=== PATIENT | male | born 1935 | race Caucasian/White ===

== ENCOUNTER 2018-01-05 11:35 | Outpatient (CLI) | payer MEDICARE, BC ==
--- NOTE | 2018-01-05 12:37 | RAD ---
SUPINE ABDOMEN: INDICATIONS: Renal calculi. COMPARISON: 10/28/2016 FINDINGS: A large amount of bowel gas and stool obscure both kidneys and urinary tracts. No definite urinary t ract calculus identified, although renal calculi could be obscured. IMPRESSION: 1. Nonspecific, diffuse small and large bowel gaseous distention. 2. No definite calculus identified, although small calculi could easily be obscured on this examinat ion. POS: RIO
--- NOTE | 2018-01-05 12:41 | ULT ---
RENAL ULTRASOUND: HISTORY: Renal cyst. COMPARISON: Correlation is made to a renal ultrasound exam dated 10/28/16. FINDINGS: The large exophytic cyst from the upper lateral right kidney is again noted measuring 11-12 cm. This appears unchanged from prior exam. The right renal cortex shows mild thinning but preserves echogen icity. No hydronephrosis. The left kidney is unremarkable. The urinary bladder is mildly distended and appears unremarkable as visualized. IMPRESSION: The large exophytic right renal cyst appears unchanged. POS: RIO
== END 2018-01-05 11:36 | disposition home or self-care (01) ==
LOC: ULT 11:35
PROVIDERS: ATTEND Urology
DX: N20.0 Calculus of kidney (principal); N40.0 Benign prostatic hyperplasia without lower urinary tract symptoms; N28.1 Cyst of kidney, acquired; K63.89 Other specified diseases of intestine
CPT/HCPCS: 36415; 74018; 76770; 80048; 81001; 87086

== ENCOUNTER 2023-02-25 11:49 | Outpatient (CLI) | payer MEDICARE, BC | END 2023-02-25 11:50 | disposition home or self-care (01) | LOC: RAD 11:49 | PROVIDERS: ATTEND Urology | DX: N20.0 Calculus of kidney (principal) | CPT/HCPCS: 74018 ==

== ENCOUNTER 2025-06-07 07:29 | Day surgery (SDC) | payer MEDICARE, BC ==
[2025-06-06 09:41] VITALS: BMI 27.6
[2025-06-07] MEDS ORDERED: Rocuronium Bromide 10 MG/ML (10ML VIAL) ONE ×2 (08:47→09:54)
[2025-06-07] MEDS ORDERED: PROPOFOL 20 ML ONE (08:47)
[2025-06-07] MEDS ORDERED: PROPOFOL 200 MG/20 ML VIAL ONE (09:54)
[2025-06-07] MEDS ORDERED: PHENYLEPHRINE-NS 100 MCG/ML 10 ML SYRINGE ONE ×2 (09:54→10:16)
[2025-06-07] MEDS ORDERED: SUGAMMADEX SODIUM 200 MG/2 ML VIAL ONE (10:01)
[2025-06-07] MEDS ORDERED: Ondansetron PF 4 MG/2 ML Vial ONE (10:01)
== END 2025-06-07 16:30 | disposition home or self-care (01) ==
LOC: SDC 07:29
PROVIDERS: ATTEND Urology
PROC: 0T778DZ Dilation of Left Ureter with Intraluminal Device, Via Natural or Artificial Opening Endoscopic (ICD-10-PCS; principal; 2025-06-07)
DX: N20.1 Calculus of ureter (principal); N40.1 Benign prostatic hyperplasia with lower urinary tract symptoms; E11.9 Type 2 diabetes mellitus without complications; Z98.890 Other specified postprocedural states; Z95.818 Presence of other cardiac implants and grafts; Z87.891 Personal history of nicotine dependence; Z79.899 Other long term (current) drug therapy
CPT/HCPCS: 52356; 74018; 74420; 82365; C1747; C1758; C1769 ×2; C2617; J1100; J1335; J2405; J2704; J3010; Q9967; 88300